=== PATIENT | male | born 1985 | race Caucasian/White ===

== ENCOUNTER 2022-04-05 07:07 | Emergency (ER) | payer OTHER ==
[2022-04-05] MEDS ORDERED: NORCO 5-325 TA1 EACH PO (10:07)
== END 2022-04-05 10:48 | disposition home or self-care (01) ==
LOC: FER 07:07
DX: S52.572A Other intraarticular fracture of lower end of left radius, initial encounter for closed fracture (principal); S62.002A Unspecified fracture of navicular [scaphoid] bone of left wrist, initial encounter for closed fracture; I10 Essential (primary) hypertension; E78.5 Hyperlipidemia, unspecified; Z79.899 Other long term (current) drug therapy; W01.0XXA Fall on same level from slipping, tripping and stumbling without subsequent striking against object, initial encounter
CPT/HCPCS: 73090; 73110; 73130